=== PATIENT | male | born 1980 | race Caucasian/White ===

== ENCOUNTER 2022-07-08 13:37 | Emergency (ER) | payer OTHER, SELFPAY ==
[2022-07-08 13:39] VITALS: BP 108/61; PULSE 110; RESP 18; TEMP 37.5; O2SAT 100
[2022-07-08 13:44] LABS: Glucose Point of Care 290 mg/dl (65-105)
--- NOTE | 2022-07-08 14:00 | ED.ABDPAIN ---
HPI - Abdominal Pain General Chief Complaint: Abdominal Pain Stated Complaint: ABD PAIN, VOMITING, HIGH BS Time Seen by Provider: 07/08/22 13:45 History of Present Illness HPI narrative: This is a 42-year-old male with past medical history of type 1 diabetes, left eye blindness, presenting the emergency department complaining of headache, abdominal pain and vomiting beginning today. He states symptoms began with a headache, he is unable to describe it but says it is severe; is not associated with weakness, numbness or loss of vision. He also complains of dull abdominal pain, epigastric, described as 4 out of 10, associated with nausea and nonbloody vomiting. He denies fevers, chills, cough, shortness of breath or diarrhea. Related Data Allergies Allergy/AdvReac Type Severity Reaction Status Date / Time No Known Allergies Allergy Verified 07/08/22 13:50 Review of Systems Review of Systems: CONSTITUTIONAL: Denies fever, chills, or sweats. EYES: Denies visual changes, redness, or discharge. ENT: Denies rhinorrhea, congestion, sore throat, or otalgia. CARDIOVASCULAR: Denies chest pain, palpitations, or edema. RESPIRATORY: Denies cough or dyspnea. GASTROINTESTINAL: abdominal pain, nausea, vomiting, denies diarrhea. GENITOURINARY: Denies dysuria or hematuria. SKIN: Denies rash or itching. MUSCULOSKELETAL: Denies back pain, joint pain, or myalgia. NEUROLOGIC: headache, Denies numbness, dizziness, or weakness. PSYCHIATRIC: Denies anxiety or depression. Exam Narrative: GENERAL: Well-developed thin male in moderate distress due to pain HEAD: Normocephalic, atraumatic. EYES: Clotted left cornea with a sunken socket, right eye pupil 3 mm reactive to light and accommodation extraocular muscles intact ENT: Nares clear, no rhinorrhea or epistaxis. Mucous membranes moist. Oropharynx without tonsillar hypertrophy exudate or other lesions. NECK: Supple. No adenopathy or masses. No carotid bruits or JVD CHEST: Clear to auscultation. No respiratory distress. No wheezes rales or rhonchi HEART: Tachycardic with regular rhythm. No murmur heard. Normal peripheral pulses. ABDOMEN: Soft, nontender, nondistended, normal active bowel sounds. EXTREMITIES: Normal range of motion. No edema. SKIN: Warm, dry, no rash. NEURO: No focal deficits. Alert and oriented x3. PSYCH: Appears anxious Course Course Emergency Course: 17:44 - CMP delayed for unknown reasons. Serum glucose 346 at 2:00 this afternoon. Patient states he feels much better. Headache resolved. Nausea vomiting resolved. He has tolerated intermittent ice chips. VBG and demonstrates mild alkalosis, likely due to vomiting. I do not suspect DKA. Will p.o. challenge with anticipated discharge with Reglan for gastroparesis. Discussed return emergency precautions including sign/symptoms of DKA and acute abdomen. Patient voiced understanding is comfortable with plan. All questions answered to her satisfaction. Vital Signs Vital signs: Vital Signs Temperature 99.5 F 07/08/22 13:39 Pulse Rate 110 H 07/08/22 13:39 Respiratory Rate 18 07/08/22 13:39 Blood Pressure 108/61 07/08/22 13:39 Pulse Oximetry 100 07/08/22 13:39 Oxygen Delivery Room Air 07/08/22 13:39 Temperature 97.6 F 07/08/22 19:15 Pulse Rate 74 07/08/22 19:15 Respiratory Rate 16 07/08/22 19:15 Blood Pressure 112/70 07/08/22 19:15 Pulse Oximetry 98 07/08/22 19:15 Oxygen Delivery Room Air 07/08/22 13:39 MDM - Abdominal Pain MDM Narrative Medical decision making narrative: Plan: Labs, IV fluids, VBG, pain control, reassess Differential Diagnosis Differential diagnosis: Likely other (DKA, metabolic abnormality, gastroparesis, other) Lab Data Result diagrams: 07/08/22 14:09 07/08/22 14:09 Labs: Lab Results 07/08/22 07/08/22 07/08/22 Range/Units 13:41 14:09 14:09 WBC 11.3 H (4.5-10.0) K/mm3 RBC 4.74 (4.6-6.20) M/mm3 Hgb 14.2 (1
[2022-07-08 14:16] LABS: Basophils Percent Auto 0.3 % (0.2-1.2); Eosinophils Percent Auto 0.3 % (0-4.4); Hematocrit 42.8 % (42.0-52.0); Hemoglobin 14.2 g/dL (14.0-18.0); Immature Granulocyte Absolute 0.03 K/mm3 (0.00-0.031); Immature Granulocyte Percent A 0.3 % (0-0.5); Lymphocytes Absolute Auto 0.39 K/mm3 (0.9-3.2); Lymphocytes Percent Auto 3.5 % (18.3-44.2); Mean Corpuscular HGB Conc 33.2 g/dl (32-36); Mean Corpuscular Volume 90.3 fl (80-100); Mean Platelet Volume 9.1 fl (7.4-10.4); Monocytes Absolute Auto 1.3 K/mm3 (0.1-0.6); Monocytes Percent Auto 11.3 % (2.6-8.5); Neutrophils Absolute Auto 9.5 K/mm3 (1.3-6.7); Neutrophils Percent Auto 84.3 % (45.5-73.1); Platelet Count Result 228 k/mm3 (150-375); Red Blood Count 4.74 M/mm3 (4.6-6.20); Red Cell Distribution Width 13.6 % (11.5-14.5); White Blood Count 11.3 K/mm3 (4.5-10.0)
[2022-07-08 14:28] LABS: Lactic Acid Reflex 1.3 mmol/L (0.7-2.0)
[2022-07-08 14:34] LABS: Beta-Hydroxybutyrate/Acetoacetate 2.08 mmol/L (0.02-0.27)
[2022-07-08 14:46] LABS: Fractional Inspired Oxygen 21 %; HCO3 VBG 23.8 mEq/l (24.0-30.0); PCO2 VBG 37.1 mmHg (42.0-48.0); PO2 VBG 35.6 mmHg (35.0-45.0)
[2022-07-08 14:48] LABS: Device ROOM AIR
[2022-07-08 14:52] LABS: pH VBG 7.425 (7.300-7.400)
[2022-07-08 15:10] VITALS: BP 110/68; PULSE 82; RESP 16; TEMP 36.3; O2SAT 100
[2022-07-08] MEDS: SODIUM CHLORIDE 0.9% IV 1,000 ML 999 ML IV CONT (15:16)
[2022-07-08] MEDS: PANTOPRAZOLE SODIUM IV 40 MG VIAL IV PUSH (15:16)
[2022-07-08 15:21] LABS: Appearance Urine Clear (Clear); Bilirubin Urine Negative (Negative); Blood Urine Negative (Negative); Color Urine Yellow (Yellow); Glucose Urine UA 3+ mg/dL (Negative); Ketones Urine 4+ mg/dL (Negative); Leukocyte Esterase Ur Negative LEU/UL (Negative); Nitrate Urine Negative (Negative); Protein Urine Negative (Negative); pH Urine 7.5 (5.0-9.0)
[2022-07-08 15:24] LABS: Add Urine Microscopic? YES; Mucus Urine Rare /lpf; RBC Urine 0-2 /hpf (0-2); WBC Urine 0-3 /hpf
[2022-07-08 16:00] VITALS: BP 112/78; PULSE 70; RESP 16; TEMP 36.8; O2SAT 100
[2022-07-08] MEDS: PROCHLORPERAZINE EDISYLATE 10 MG/2 ML VIAL IM (16:05)
[2022-07-08 17:10] VITALS: BP 112/70; PULSE 68; RESP 18; TEMP 36.4; O2SAT 100
[2022-07-08 17:31] LABS: Alanine Aminotransferase 39 U/L (6-50); Albumin Level 4.5 g/dL (3.5-5.1); Alkaline Phosphatase 86 U/L (38-126); Anion Gap 12 mmol/L (8-16); Aspartate Amino Transferase 34 U/L (17-59); Bilirubin,Total 1.3 mg/dL (0.2-1.3); Blood Urea Nitrogen 17 mg/dL (9-20); Calcium 9.2 mg/dL (8.4-10.2); Carbon Dioxide 22 mmol/L (22-30); Chloride 99 mmol/L (98-107); Estimated CRCL calculation 89 ml/min; Estimated Glomerular Filt Rate > 60; Glucose 346 mg/dL (65-110); Lipase 51 U/L (23-300); Potassium 4.7 mmol/L (3.4-5.0); Sodium 133 mmol/L (137-145)
[2022-07-08 17:51] VITALS: BP 110/70; PULSE 70; RESP 16; TEMP 36.8; O2SAT 100
[2022-07-08 19:15] VITALS: BP 112/70; PULSE 74; RESP 16; TEMP 36.4; O2SAT 98
== END 2022-07-08 19:17 | disposition home or self-care (01) ==
PROVIDERS: Emergency Provider Preventive Medicine Aerospace Medicine
DX: E10.43 Type 1 diabetes mellitus with diabetic autonomic (poly)neuropathy (principal); K31.84 Gastroparesis; E10.65 Type 1 diabetes mellitus with hyperglycemia; R51.9 Headache, unspecified; Z79.4 Long term (current) use of insulin
CPT/HCPCS: 36415; 80053; 81001; 82010; 82803; 82948; 83605; 83690; 85025; 96365; 96372; 96375; 99284; C9113; J0131; J0780; J7030